=== PATIENT | female | born 1940 | race Caucasian/White ===

== ENCOUNTER 2016-11-12 13:09 | Emergency (ER) | payer OTHER ==
[~2016-11-12] VITALS: Ht 144.8 cm; Wt 74.8 kg
--- NOTE | 2016-11-12 13:14 | NUR ---
Pt medicated.Pt tolerated well.
[2016-11-12] MEDS ORDERED: ASPIRIN 81 MG TAB.CHEW PO ONE (13:15)
[2016-11-12 13:16] VITALS: BP 161/84; PULSE 58; RESP 18; TEMP 98.1; O2SAT 99
--- NOTE | 2016-11-12 13:19 | NUR ---
Patient to ER bed 06 to gown for evaluation. Side rails up.
--- NOTE | 2016-11-12 13:25 | NUR ---
ER at bedside examining patient.
--- NOTE | 2016-11-12 13:30 | NUR ---
Pt presents to ED c/o epigastric pain w/nausea.Pt h/o HTN.no acute distress noted. Pt denies CP or SOB.
[2016-11-12 13:33] LABS: BASOPHILS % (AUTO) 0.5 % (0.0-2.0); EOSINOPHILS # (AUTO) 0.1 K/uL (0.0-0.4); EOSINOPHILS % (AUTO) 1.3 % (0.0-4.0); HEMATOCRIT 39.3 % (36-48); LYMPHOCYTES # (AUTO) 1.9 K/uL (1.0-5.5); LYMPHOCYTES % (AUTO) 28.7 % (20.5-51.5); MEAN CORPUSCULAR HEMOGLOBIN 29 pg (27-31); MEAN CORPUSCULAR HGB CONC 33 % (32-36); MEAN CORPUSCULAR VOLUME 89 fL (79.0-98.0); MONOCYTES # (AUTO) 0.3 K/uL (0.0-1.0); NEUTROPHILS # (AUTO) 4.3 K/uL (1.8-7.7); NEUTROPHILS % (AUTO) 64.5 % (40.0-70.0); PLATELET COUNT (AUTO) 181 K/uL (130-430); RED BLOOD CELL COUNT(AUTO) 4.45 MIL/uL (4.2-6.2); RED CELL DISTRIBUTION WIDTH 12.1 % (9.0-15.0); WHITE BLOOD COUNT (AUTO) 6.6 K/uL (4.8-10.8)
[2016-11-12 13:44] LABS: PROTHROMBIN TIME 10.8 SECS (9.5-12.5)
[2016-11-12 13:47] LABS: ANION GAP 5 (5-15); CALCIUM 8.9 mg/dL (8.4-11.0); CHLORIDE 105 mmol/L (98-107); CREATININE 0.72 mg/dL (0.55-1.30); GLUCOSE 115 mg/dL (70-99); POTASSIUM 3.8 mmol/L (3.5-5.1); SODIUM SERUM 137 mmol/L (136-145); UREA NITROGEN, BLOOD 16 mg/dL (8-21)
[2016-11-12 13:52] LABS: ALANINE AMINOTRANSFERASE 21 U/L (12-78); ALBUMIN 4.1 g/dL (3.4-4.8); ASPARTATE AMINOTRANSFERASE 15 U/L (10-37); TOTAL BILIRUBIN 0.5 mg/dL (0.0-1.0); TOTAL PROTEIN, SERUM 7.6 g/dL (6.4-8.3)
[2016-11-12] MEDS ORDERED: KETOROLAC TROMETHAMINE 15 MG VIAL IVP ONE (14:00)
[2016-11-12] MEDS ORDERED: ONDANSETRON HCL 4 MG/2 ML VIAL IVP ONE (14:00)
[2016-11-12] MEDS ORDERED: NACL 0.9% 1,000 ML IV ONE (14:00)
[2016-11-12] MEDS ORDERED: MAG HYDROX/AL HYDROX/SIMETH 30 ML, LIDOCAINE VISCOUS 2% 15ML (PO) 10 ML, BELLADONNA ALK... PO ONE ×3 (14:00)
--- NOTE | 2016-11-12 14:30 | NUR ---
Pt sleeping easilu aroused.
[2016-11-12] MEDS ORDERED: BELLADONNA ALKALOIDS/PHENOBARB 5 ML UDC ONE (14:52)
[2016-11-12] MEDS ORDERED: MAG-AL HYDROX/SIMETH 30 ML UDC ONE (14:52)
[2016-11-12] MEDS ORDERED: ONDANSETRON 4 MG ODT TAB PO ONE (15:15)
[2016-11-12] MEDS ORDERED: KETOROLAC TROMETHAMINE 30 MG VIAL IM ONE (15:15)
--- NOTE | 2016-11-12 15:40 | NUR ---
Pt tolerated medication.Symptoms resolved
[2016-11-12 16:30] VITALS: BP 161/82; PULSE 56; RESP 18; TEMP 98; O2SAT 99
--- NOTE | 2016-11-12 16:30 | NUR ---
Patient given written and verbal discharge instructions and verbalizes understanding. ER MD discussed with patient the results and treatment provided. Patient in stable condition. ID arm band removed. Rx of Zofran,pepcid given. Patient educated on pain management and to follow up with PMD. Pain Scale 0. Opportunity for questions provided and answered.
== END 2016-11-12 16:30 | disposition home or self-care (01) ==
LOC: SED 13:09
DX: R10.13 Epigastric pain (principal); R11.2 Nausea with vomiting, unspecified; I10 Essential (primary) hypertension; Z90.710 Acquired absence of both cervix and uterus
CPT/HCPCS: 36415; 71010; 74176; 80053; 83880; 84484; 85025; 85610; 85730; 93005; 96372; 99285; J1885; Q0162

== ENCOUNTER 2017-02-28 15:15 | Emergency (ER) | payer OTHER ==
[~2017-02-28] VITALS: Ht 149.9 cm; Wt 73.9 kg
[2017-02-28 15:18] VITALS: BP_SYST 137
[2017-02-28] MEDS ORDERED: NACL 0.9% 500 ML IV ONE (16:15)
[2017-02-28] MEDS ORDERED: KETOROLAC TROMETHAMINE 30 MG VIAL IVP ONE (16:15)
[2017-02-28 16:34] LABS: BASOPHILS % (AUTO) 0.6 % (0.0-2.0); EOSINOPHILS # (AUTO) 0.2 K/uL (0.0-0.4); EOSINOPHILS % (AUTO) 2.4 % (0.0-4.0); HEMATOCRIT 36.4 % (36-48); HEMOGLOBIN 12.5 g/dL (12.0-16.0); LYMPHOCYTES # (AUTO) 2.7 K/uL (1.0-5.5); LYMPHOCYTES % (AUTO) 34.7 % (20.5-51.5); MEAN CORPUSCULAR HEMOGLOBIN 31 pg (27-31); MEAN CORPUSCULAR HGB CONC 34 % (32-36); MEAN CORPUSCULAR VOLUME 89 fL (79.0-98.0); MONOCYTES # (AUTO) 0.4 K/uL (0.0-1.0); MONOCYTES % (AUTO) 5.6 % (1.7-9.3); NEUTROPHILS # (AUTO) 4.5 K/uL (1.8-7.7); NEUTROPHILS % (AUTO) 56.7 % (40.0-70.0); PLATELET COUNT (AUTO) 177 K/uL (130-430); RED CELL DISTRIBUTION WIDTH 12.4 % (9.0-15.0); WHITE BLOOD COUNT (AUTO) 7.8 K/uL (4.8-10.8)
[2017-02-28 16:41] LABS: PROTHROMBIN TIME 10.6 SECS (9.5-12.5)
[2017-02-28] MEDS ORDERED: ACETAMINOPHEN 500 MG TABLET PO ONE (16:45)
[2017-02-28 16:50] LABS: ANION GAP 7 (5-15); CALCIUM 8.8 mg/dL (8.4-11.0); CHLORIDE 106 mmol/L (98-107); CREATININE 0.86 mg/dL (0.55-1.30); GLUCOSE 128 mg/dL (70-99); POTASSIUM 4.5 mmol/L (3.5-5.1); SODIUM SERUM 142 mmol/L (136-145); UREA NITROGEN, BLOOD 17 mg/dL (8-21)
[2017-02-28 17:01] LABS: ALANINE AMINOTRANSFERASE 22 U/L (12-78); ALBUMIN 3.8 g/dL (3.4-4.8); TOTAL BILIRUBIN 0.4 mg/dL (0.0-1.0)
[2017-02-28 17:41] LABS: ASPARTATE AMINOTRANSFERASE 22 U/L (10-37)
[2017-02-28 18:48] VITALS: BP_SYST 134
== END 2017-02-28 18:48 | disposition home or self-care (01) ==
LOC: SED 15:15
DX: R10.12 Left upper quadrant pain (principal); I10 Essential (primary) hypertension
CPT/HCPCS: 36415; 74176; 80053; 85025; 85610; 85730; 96361; 96374; 99285; J1885; J7030; 96360

== ENCOUNTER 2017-10-23 20:38 | Emergency (ER) | payer OTHER ==
[~2017-10-23] VITALS: Ht 149.9 cm; Wt 75.3 kg
[2017-10-23 20:45] VITALS: BP_SYST 144
== END 2017-10-23 23:00 | disposition left against medical advice (07) ==
LOC: SED 20:38
DX: R07.9 Chest pain, unspecified (principal); Z53.21 Procedure and treatment not carried out due to patient leaving prior to being seen by health care provider
CPT/HCPCS: 71045; 71100; 93005; 99281